=== PATIENT | female | born 1995 | race Hispanic/Latino ===

== ENCOUNTER 2017-10-05 20:54 | Inpatient (IN) | payer SELFPAY ==
[~2017-10-05] VITALS: Ht 154.9 cm; Wt 88.7 kg
[~2017-10-05 20:54] MED LIST: LEVO500T2 PO; METF10004 PO; METR500T PO; SITA50TA PO; TYL3B PO
[2017-10-05 21:18] LABS: APPEARANCE,URINE Clear (CLEAR); BILIRUBIN,URINE Negative (NEGATIVE); COLOR,URINE Yellow (YELLOW); GLUCOSE, URINE (UA) >=1000 mg/dL (NEGATIVE); KETONES,URINE >=80 mg/dL (NEGATIVE); LEUKOCYTE ESTERASE ,URINE Negative (NEGATIVE); NITRATE,URINE Positive (NEGATIVE); OCCULT BLOOD,URINE Negative (NEGATIVE); PROTEIN,URINE POS 2+ (NEGATIVE); UROBILINOGEN,URINE 0.2 mg/dL (0.2-1.0)
[2017-10-05 21:23] LABS: BASOPHILS % (AUTO) 0.5 % (0.0-5.0); HEMATOCRIT 46.9 % (36-48); MEAN CORPUSCULAR HGB CONC 34.7 g/dL (32.0-36.0); MEAN CORPUSCULAR VOLUME 89.2 fL (79-99); MONOCYTES % (AUTO) 6.6 % (3.0-13.0); NEUTROPHILS % (AUTO) 71.9 % (40.0-77.0); PLATELET COUNT (AUTO) 375 K/uL (130-400); RED BLOOD CELL COUNT(AUTO) 5.26 MIL/uL (4.00-5.50); RED CELL DISTRIBUTION WIDTH 12.6 % (11.0-15.5); WHITE BLOOD COUNT (AUTO) 14.2 K/uL (4.8-10.8)
[2017-10-05 21:39] LABS: ALBUMIN 3.4 g/dL (3.5-5.0); BILIRUBIN,TOTAL 0.6 mg/dL (0.2-1.0); CREATININE 0.7 mg/dL (0.5-1.5); POTASSIUM 4.4 mmol/L (3.5-5.1); TOTAL PROTEIN, SERUM 8.5 g/dL (6.0-8.3)
[2017-10-05] MEDS ORDERED: SODIUM CHLORIDE 0.9% 1000ML 1,000 ML IV ONE (22:05)
[2017-10-05 22:06] LABS: RBC,URINE 0-1 /HPF (0-1); YEAST,URINE BUDDING Few /HPF (None Seen)
[2017-10-05] MEDS ORDERED: INSULIN HUMULIN R 100 UNIT/ML 3ML ONE (22:06)
[2017-10-05 22:07] LABS: BACTERIA,URINE Moderate /HPF (None Seen); SQUAMOUS EPITHELIAL CELL,UR Moderate /LPF (0-2)
[2017-10-05] MEDS ORDERED: ONDANSETRON HCL 4 MG/2 ML VIAL ONE (22:25)
[2017-10-05] MEDS ORDERED: HYOSCYAMINE SULFATE 0.125 MG TAB.SUBL SL ONE (22:26)
[2017-10-05] MEDS ORDERED: FAMOTIDINE/PF 20 MG/2 ML VIAL IV ONE (22:27)
[2017-10-05] MEDS ORDERED: MORPHINE SULFATE 2 MG/ML 1ML SYG IV PRN (23:15)
[2017-10-05] MEDS ORDERED: ACETAMINOPHEN 325 MG TAB PO PRN ×2 (23:15)
[2017-10-05] MEDS: METRONIDAZOLE 500MG/100ML BAG 100 ML IV SCH (23:15)
[2017-10-05] MEDS ORDERED: HYDROCODONE/ACETAMINOPHEN 5/325 MG TAB PO PRN (23:15)
[2017-10-05] MEDS ORDERED: DEXTROSE 50%-WATER 50 ML DISP.SYRIN IV PRN (23:15)
[2017-10-05] MEDS ORDERED: LIDOCAINE HCL-MPF 1% 2ML VIAL IVP PRN (23:15)
[2017-10-05] MEDS ORDERED: GLUCAGON 1MG KIT 1 MG ML IM PRN (23:15)
[2017-10-05] MEDS ORDERED: POTASSIUM CHLORIDE 20MEQ/100ML 100 ML IV PRN (23:15)
[2017-10-05] MEDS ORDERED: LACTATED RINGERS 1000ML 1,000 ML IV SCH (23:15)
[2017-10-05] MEDS: LEVOFLOXACIN 500 MG/D5W 100 ML 100 ML IV SCH (23:15)
[2017-10-05] MEDS ORDERED: POTASSIUM CHLORIDE 10% ELIXIR 20 MEQ/15 ML UDCUP PO PRN (23:15)
[2017-10-05] MEDS ORDERED: ONDANSETRON HCL 4 MG/2 ML VIAL IV PRN (23:15)
[2017-10-05] MEDS ORDERED: LEVOFLOXACIN 500 MG/D5W 100 ML 100 ML ONE (23:17)
[2017-10-05] MEDS ORDERED: PHARMACY COMMUNICATION MISC SCH (23:45)
[2017-10-05] MEDS ORDERED: LABETALOL 20 MG/4 ML DISP.SYRIN IV PRN (23:45)
[2017-10-06] MEDS ORDERED: LACTATED RINGERS 1000ML 1,000 ML IV ONE ×2 (00:04→07:59)
[2017-10-06] MEDS ORDERED: METRONIDAZOLE 500MG/100ML BAG 100 ML ONE ×2 (00:31→07:41)
[2017-10-06] MEDS ORDERED: HYDROCODONE/ACETAMINOPHEN 5/325 MG TAB ONE (00:31)
[2017-10-06 06:00] LABS: HEMATOCRIT 38.7 % (36-48); MEAN CORPUSCULAR HEMOGLOBIN 30.8 pg (27.0-33.0); MEAN CORPUSCULAR HGB CONC 34.8 g/dL (32.0-36.0); MEAN CORPUSCULAR VOLUME 88.5 fL (79-99); PLATELET COUNT (AUTO) 300 K/uL (130-400); RED BLOOD CELL COUNT(AUTO) 4.37 MIL/uL (4.00-5.50); RED CELL DISTRIBUTION WIDTH 12.6 % (11.0-15.5); WHITE BLOOD COUNT (AUTO) 11.2 K/uL (4.8-10.8)
[2017-10-06 06:08] LABS: INR 0.96 (0.85-1.15); PARTIAL THROMBOPLASTIN TIME 29.1 SEC (26.3-35.5); PROTHROMBIN TIME 10.1 SEC (9.6-11.6)
[2017-10-06 06:22] LABS: HEMOGLOBIN A1C 11.9 % (4.0-6.0)
[2017-10-06 06:40] LABS: MAGNESIUM 1.4 mg/dL (1.80-2.40)
[2017-10-06] MEDS: METRONIDAZOLE 500MG/100ML BAG 100 ML IV SCH ×3 (07:15→23:01)
[2017-10-06] MEDS: INSULIN HUMULIN R 100 UNIT/ML 3ML SQ SCH ×4 (07:30→20:51)
[2017-10-06] MEDS ORDERED: LISINOPRIL 5 MG TABLET ONE (08:27)
[2017-10-06] MEDS ORDERED: CARVEDILOL 3.125 MG TABLET PO ONE (08:28)
[2017-10-06] MEDS ORDERED: PANTOPRAZOLE SODIUM 40 MG TABLET.DR PO ONE (08:28)
[2017-10-06] MEDS ORDERED: ENOXAPARIN SODIUM 40 MG/0.4 ML SYRINGE SQ ONE (08:28)
[2017-10-06 08:30] LABS: HIGH SENSITIVITY CRP 129.87 mg/L (0.0-3.0)
[2017-10-06] MEDS ORDERED: PANTOPRAZOLE 40 MG/VIAL IVP SCH (09:00)
[2017-10-06] MEDS: CARVEDILOL 3.125 MG TABLET PO SCH ×2 (09:00→20:56)
[2017-10-06] MEDS: LISINOPRIL 10 MG TABLET PO SCH (09:00)
[2017-10-06] MEDS ORDERED: INSULIN DETEMIR 10ML 100 UNIT/ML 10ML SQ SCH (09:00)
[2017-10-06] MEDS: ENOXAPARIN SODIUM 40 MG/0.4 ML SYRINGE SQ SCH (09:00)
[2017-10-06] MEDS: FAMOTIDINE/PF 20 MG/2 ML VIAL IV SCH ×2 (09:00→20:55)
[2017-10-06 16:24] VITALS: BP 118/75
[2017-10-06] MEDS: SODIUM CHLORIDE 0.9% 1000ML 1,000 ML IV SCH (18:33)
[2017-10-06] MEDS ORDERED: MAGNESIUM 2GM PREMIX 50ML 50 ML IV SCH (18:45)
[2017-10-06 19:39] VITALS: BP 115/74
[2017-10-06] MEDS: INSULIN GLARGINE 100 UNITS/ML 10 ML VIAL SQ SCH (20:49)
[2017-10-06] MEDS: LEVOFLOXACIN 500 MG/D5W 100 ML 100 ML IV SCH (23:23)
[2017-10-06 23:55] VITALS: BP 127/73
[2017-10-07] MEDS: SODIUM CHLORIDE 0.9% 1000ML 1,000 ML IV SCH (02:37)
[2017-10-07 04:45] VITALS: BP 98/68
[2017-10-07 04:55] LABS: BASOPHILS % (AUTO) 0.5 % (0.0-5.0); EOSINOPHILS % (AUTO) 3.5 % (0.0-8.0); HEMATOCRIT 36.6 % (36-48); LYMPHOCYTES % (AUTO) 24.3 % (21.0-51.0); MEAN CORPUSCULAR HEMOGLOBIN 31.1 pg (27.0-33.0); MEAN CORPUSCULAR HGB CONC 35.2 g/dL (32.0-36.0); MEAN CORPUSCULAR VOLUME 88.4 fL (79-99); MONOCYTES % (AUTO) 8.4 % (3.0-13.0); NEUTROPHILS % (AUTO) 63.3 % (40.0-77.0); PLATELET COUNT (AUTO) 286 K/uL (130-400); RED BLOOD CELL COUNT(AUTO) 4.14 MIL/uL (4.00-5.50); RED CELL DISTRIBUTION WIDTH 12.4 % (11.0-15.5); WHITE BLOOD COUNT (AUTO) 10.1 K/uL (4.8-10.8)
[2017-10-07 05:13] LABS: CREATININE 0.5 mg/dL (0.5-1.5); MAGNESIUM 1.8 mg/dL (1.80-2.40); POTASSIUM 3.3 mmol/L (3.5-5.1)
[2017-10-07] MEDS: POTASSIUM CHLORIDE 20 MEQ ERTAB PO PRN ×3 (06:31→16:45)
[2017-10-07] MEDS: INSULIN HUMULIN R 100 UNIT/ML 3ML SQ SCH ×3 (06:31→18:00)
[2017-10-07] MEDS: METRONIDAZOLE 500MG/100ML BAG 100 ML IV SCH ×2 (06:31→13:23)
[2017-10-07 08:00] VITALS: BP 123/70
[2017-10-07] MEDS: INSULIN GLARGINE 100 UNITS/ML 10 ML VIAL SQ SCH (08:45)
[2017-10-07] MEDS: ENOXAPARIN SODIUM 40 MG/0.4 ML SYRINGE SQ SCH (08:48)
[2017-10-07] MEDS: METFORMIN HCL 500 MG TAB.SR.24H PO SCH ×2 (08:48→16:44)
[2017-10-07] MEDS: FAMOTIDINE/PF 20 MG/2 ML VIAL IV SCH (08:48)
[2017-10-07] MEDS: LISINOPRIL 10 MG TABLET PO SCH (08:50)
[2017-10-07] MEDS: CARVEDILOL 3.125 MG TABLET PO SCH (08:50)
[2017-10-07] MEDS ORDERED: PAROXETINE HCL 20 MG TABLET PO SCH (09:00)
[2017-10-07 11:51] VITALS: BP 120/65
[2017-10-07] MEDS ORDERED: PARO-66 PO (14:49)
[2017-10-07] MEDS ORDERED: LEVO500T2 PO (14:49)
[2017-10-07] MEDS ORDERED: METF500T3 PO (14:49)
[2017-10-07 15:52] VITALS: BP 95/60
[2017-10-07] MEDS ORDERED: FLU VACC QS2017-18 36MOS UP/PF 60 MCG/0.5 ML ML IM SCH (17:15)
== END 2017-10-07 18:23 | disposition home or self-care (01) | DRG 74 ==
LOC: EDH 20:54 → EDHIP 20:55 → 3DH 10-06 14:19
PROVIDERS: ADMIT Family Medicine; ATTEND Family Medicine
PROC: 3E0234Z Introduction of Serum, Toxoid and Vaccine into Muscle, Percutaneous Approach (ICD-10-PCS; principal; 2017-10-05)
DX: E11.43 Type 2 diabetes mellitus with diabetic autonomic (poly)neuropathy (principal); E87.0 Hyperosmolality and hypernatremia; E11.65 Type 2 diabetes mellitus with hyperglycemia; N12 Tubulo-interstitial nephritis, not specified as acute or chronic; E87.1 Hypo-osmolality and hyponatremia; K31.84 Gastroparesis; E86.0 Dehydration; Z91.11 Patient's noncompliance with dietary regimen; E66.9 Obesity, unspecified; E87.6 Hypokalemia; F32.9 Major depressive disorder, single episode, unspecified; Z68.37 Body mass index [BMI] 37.0-37.9, adult; Z88.8 Allergy status to other drugs, medicaments and biological substances; Z91.14 Patient's other noncompliance with medication regimen; Z23 Encounter for immunization
CPT/HCPCS: 36415; 71045; 74018; 78264; 80048; 80053; 80061; 81001; 81025; 82009; 82150; 82948; 83036; 83690; 83735; 83930; 85025; 85027; 85610; 85730; 86141; 87040; 87088; 87186; 93005; A9541; G0008; J1650; J1815; J1956; J2405; J3475; J3490; J7030; J7120; Q2038

== ENCOUNTER 2019-05-27 02:05 | Emergency (ER) | payer OTHER ==
[~2019-05-27 02:05] MED LIST changes: -METF10004 PO; +METF500T3 PO; -METR500T PO; +PARO-66 PO; -SITA50TA PO; -TYL3B PO
[2019-05-27] MEDS ORDERED: SODIUM CHLORIDE 0.9% 1000ML 1,000 ML IV ONE ×2 (02:24→03:16)
[2019-05-27 02:32] LABS: APPEARANCE,URINE Cloudy (CLEAR); BILIRUBIN,URINE Negative (NEGATIVE); COLOR,URINE Yellow (YELLOW); GLUCOSE, URINE (UA) >=1000 mg/dL (NEGATIVE); KETONES,URINE >=80 mg/dL (NEGATIVE); LEUKOCYTE ESTERASE ,URINE Trace (NEGATIVE); NITRATE,URINE Positive (NEGATIVE); OCCULT BLOOD,URINE Negative (NEGATIVE); PH,URINE 5.5 (5.0-8.0); PROTEIN,URINE POS 1+ mg/dL (NEGATIVE)
[2019-05-27 02:34] LABS: BASOPHILS % (AUTO) 2.1 % (0.0-5.0); EOSINOPHILS % (AUTO) 1.3 % (0.0-8.0); HEMATOCRIT 42.1 % (36-48); LYMPHOCYTES % (AUTO) 11.7 % (21.0-51.0); MEAN CORPUSCULAR HEMOGLOBIN 31.9 pg (27.0-33.0); MEAN CORPUSCULAR HGB CONC 34.6 g/dL (32.0-36.0); MEAN CORPUSCULAR VOLUME 92.4 fL (79-99); MONOCYTES % (AUTO) 4.5 % (3.0-13.0); NEUTROPHILS % (AUTO) 80.4 % (40.0-77.0); PLATELET COUNT (AUTO) 261 K/uL (130-400); RED BLOOD CELL COUNT(AUTO) 4.56 MIL/uL (4.00-5.50); RED CELL DISTRIBUTION WIDTH 12.8 % (11.0-15.5); WHITE BLOOD COUNT (AUTO) 13.8 K/uL (4.8-10.8)
[2019-05-27 02:39] LABS: CREATININE 0.5 mg/dL (0.5-1.5); POTASSIUM 3.7 mmol/L (3.5-5.1)
[2019-05-27 02:40] LABS: AMPHET/METH SCREEN,URINE NEGATIVE (NEGATIVE); BARBITURATE SCREEN, URINE NEGATIVE (NEGATIVE); BENZODIAZEPINES SCREEN,URINE NEGATIVE (NEGATIVE); CANNABINOID SCREEN,URINE NEGATIVE (NEGATIVE); COCAINE SCREEN,URINE NEGATIVE (NEGATIVE); OPIATE SCREEN,URINE NEGATIVE (NEGATIVE); PHENCYCLIDINE SCREEN,URINE NEGATIVE (NEGATIVE)
[2019-05-27 02:40] LABS: RAPID GROUP A STREP NEGATIVE (NEGATIVE)
[2019-05-27 02:49] LABS: BACTERIA,URINE Many /HPF (None Seen); HCG,QUAL RESULT NEGATIVE (NEGATIVE); MUCUS,URINE Few LPF (None Seen); RBC,URINE 0-1 /HPF (0-1); SQUAMOUS EPITHELIAL CELL,UR Rare /HPF (0-2)
[2019-05-27] MEDS ORDERED: LEVOFLOXACIN 500 MG/D5W 100 ML 100 ML ONE (03:15)
[2019-05-27] MEDS ORDERED: ACETAMINOPHEN EXTRA STRENGTH 500 MG TABLET ONE (03:15)
[2019-05-27] MEDS ORDERED: INSULIN HUMULIN R 100 UNIT/ML 3ML ONE (03:16)
== END 2019-05-27 04:45 | disposition home or self-care (01) ==
LOC: EDH 02:05
DX: N10 Acute pyelonephritis (principal); E13.65 Other specified diabetes mellitus with hyperglycemia; F41.9 Anxiety disorder, unspecified; F32.9 Major depressive disorder, single episode, unspecified; Z88.8 Allergy status to other drugs, medicaments and biological substances; Z90.49 Acquired absence of other specified parts of digestive tract
CPT/HCPCS: 36415; 80048; 80305; 81001; 81025; 83605; 85025; 87040 ×2; 87077; 87088; 87186; 87804 ×2; 87880; 96361; 96365; 96375; 99284; J1815; J1956; J7030 ×2

== ENCOUNTER 2020-02-20 20:10 | Emergency (ER) | payer OTHER ==
[2020-02-20] MEDS ORDERED: ONDANSETRON HCL 4 MG/2 ML VIAL ONE (21:51)
[2020-02-20] MEDS ORDERED: KETOROLAC TROMETHAMINE 30MG/ML ONE (21:51)
[2020-02-20] MEDS ORDERED: MORPHINE SULFATE 4 MG/1ML SYG ONE (21:52)
[2020-02-20] MEDS ORDERED: INSULIN HUMULIN R 100 UNIT/ML 3ML ONE (21:53)
[2020-02-20] MEDS ORDERED: SODIUM CHLORIDE 0.9% 500ML 1,000 ML IV ONE (22:23)
== END 2020-02-21 00:55 | disposition home or self-care (01) ==
LOC: EDH 20:10
DX: N30.00 Acute cystitis without hematuria (principal); B00.9 Herpesviral infection, unspecified; E11.65 Type 2 diabetes mellitus with hyperglycemia; F41.9 Anxiety disorder, unspecified; F32.9 Major depressive disorder, single episode, unspecified; Z88.8 Allergy status to other drugs, medicaments and biological substances; Z90.49 Acquired absence of other specified parts of digestive tract
CPT/HCPCS: 36415; 36600; 80053; 81001; 81025; 82010; 82803; 82948; 83605; 85025; 87040 ×2; 87077; 87088; 87186; 96361; 96374; 96375; 99284; J1815; J1885; J2270; J2405; J7040

== ENCOUNTER 2020-10-29 19:53 | Emergency (ER) | payer OTHER ==
[2020-10-29] MEDS ORDERED: SODIUM CHLORIDE 0.9% 1000ML 1,000 ML IV ONE (21:08)
[2020-10-29 21:14] LABS: BASOPHILS % (AUTO) 0.3 % (0.0-5.0); HEMATOCRIT 44.4 % (36-48); LYMPHOCYTES % (AUTO) 41.9 % (21.0-51.0); MEAN CORPUSCULAR HGB CONC 35.4 g/dL (32.0-36.0); MEAN CORPUSCULAR VOLUME 87.6 fL (79-99); MONOCYTES % (AUTO) 6.1 % (3.0-13.0); NEUTROPHILS % (AUTO) 49.5 % (40.0-77.0); PLATELET COUNT (AUTO) 355 K/uL (130-400); RED BLOOD CELL COUNT(AUTO) 5.07 MIL/uL (4.00-5.50); RED CELL DISTRIBUTION WIDTH 11.7 % (11.0-15.5); WHITE BLOOD COUNT (AUTO) 8.8 K/uL (4.8-10.8)
[2020-10-29 21:28] LABS: APPEARANCE,URINE Clear (CLEAR); BILIRUBIN,URINE Negative (NEGATIVE); COLOR,URINE Yellow (YELLOW); GLUCOSE, URINE (UA) >=1000 mg/dL (NEGATIVE); KETONES,URINE Trace mg/dL (NEGATIVE); LEUKOCYTE ESTERASE ,URINE Trace (NEGATIVE); NITRATE,URINE Positive (NEGATIVE); OCCULT BLOOD,URINE Moderate (NEGATIVE); PH,URINE 5.5 (5.0-8.0); PROTEIN,URINE Trace mg/dL (NEGATIVE); UROBILINOGEN,URINE 0.2 mg/dL (0.2-1.0)
[2020-10-29 21:32] LABS: CREATININE 0.6 mg/dL (0.5-1.5); POTASSIUM 3.6 mmol/L (3.5-5.1)
[2020-10-29 21:36] LABS: BACTERIA,URINE Moderate /HPF (None Seen); MUCUS,URINE Few LPF (None Seen); SQUAMOUS EPITHELIAL CELL,UR Few /HPF (0-2); YEAST,URINE BUDDING Few /HPF (None Seen)
[2020-10-29 21:37] LABS: ALBUMIN 3.6 g/dL (3.5-5.0); BILIRUBIN,TOTAL 0.3 mg/dL (0.2-1.0); TOTAL PROTEIN, SERUM 8.1 g/dL (6.0-8.3)
[2020-10-29 21:49] LABS: ABG BASE EXCESS -4.6 mmol/L (-2.0-3.0); ABG HCO3 19.8 mmol/L (21.0-28.0); ABG PCO2 35 mmHg (32-45)
[2020-10-29 21:52] LABS: ABG BASE EXCESS -2.7 mmol/L (-2.0-3.0); ABG HCO3 22.4 mmol/L (21.0-28.0); ABG OXYGEN SATURATION 96.6 % (95.0-99.0); ABG PCO2 40 mmHg (32-45)
[2020-10-29] MEDS ORDERED: LEVOFLOXACIN 500 MG TABLET ONE ×2 (21:52→22:23)
[2020-10-29] MEDS ORDERED: LORAZEPAM 0.5 MG TABLET ONE (22:23)
== END 2020-10-29 23:21 | disposition home or self-care (01) ==
LOC: EDH 19:53
DX: F41.1 Generalized anxiety disorder (principal); E10.65 Type 1 diabetes mellitus with hyperglycemia; N39.0 Urinary tract infection, site not specified; Z20.822 Contact with and (suspected) exposure to COVID-19; F32.9 Major depressive disorder, single episode, unspecified; Z88.8 Allergy status to other drugs, medicaments and biological substances; Z90.49 Acquired absence of other specified parts of digestive tract
CPT/HCPCS: 36415; 36600; 80053; 81001; 82010; 82803; 85025; 87077; 87088; 87186; 87426; 96360; 99283; J7030; U0003

== ENCOUNTER 2022-04-12 03:42 | Emergency (ER) | payer OTHER ==
[~2022-04-12] VITALS: Ht 154.9 cm; Wt 82.1 kg
[~2022-04-12 03:42] MED LIST changes: +GLIM4TAB36 PO; +INSLAN SQ; -LEVO500T2 PO; +METF-444 PO
[2022-04-12] MEDS ORDERED: DIPH50CA37 PO (03:58)
[2022-04-12] MEDS ORDERED: DIPHENHYDRAMINE HCL 25 MG CAPSULE PO ONE (04:00)
[2022-04-12] MEDS ORDERED: DEXAMETHASONE SOD PHOSPHATE 4 MG/ML 1ML VIAL IM ONE (04:00)
[2022-04-12] MEDS ORDERED: LORATADINE 10 MG TABLET PO SCH (04:00)
[2022-04-12] MEDS ORDERED: DEXAMETHASONE SOD PHOSPHATE 10MG/ML 1ML VIAL ONE (04:01)
[2022-04-12] MEDS ORDERED: LORATADINE 10 MG TABLET ONE (04:02)
[2022-04-12] MEDS ORDERED: DIPHENHYDRAMINE HCL 25 MG CAPSULE ONE (04:02)
[2022-04-12 04:47] VITALS: BP 131/63
== END 2022-04-12 04:53 | disposition home or self-care (01) ==
LOC: EDH 03:42
DX: T78.49XA Other allergy, initial encounter (principal); E11.9 Type 2 diabetes mellitus without complications; Z79.52 Long term (current) use of systemic steroids; Z79.84 Long term (current) use of oral hypoglycemic drugs; Z79.899 Other long term (current) drug therapy; Z88.0 Allergy status to penicillin; X58.XXXA Exposure to other specified factors, initial encounter
CPT/HCPCS: 99283; 96372; Q0163; J1100

== ENCOUNTER 2022-12-04 14:12 | Emergency (ER) | payer OTHER ==
[~2022-12-04] VITALS: Ht 154.9 cm; Wt 83.5 kg
[~2022-12-04 14:12] MED LIST changes: +DIPH50CA37 PO; +PARO-149 PO; -PARO-66 PO
[2022-12-04] MEDS ORDERED: 0.9%NACL 1000ML 2,000 ML IV ONE (15:00)
[2022-12-04] MEDS ORDERED: 0.9%NACL 1000ML 1,000 ML IV ONE (15:00)
[2022-12-04 15:03] LABS: BASOPHILS % (AUTO) 0.4 % (0.0-5.0); EOSINOPHILS % (AUTO) 0.1 % (0.0-8.0); HEMATOCRIT 39.3 % (36-48); LYMPHOCYTES % (AUTO) 21.1 % (21.0-51.0); MEAN CORPUSCULAR HEMOGLOBIN 30.5 pg (27.0-33.0); MEAN CORPUSCULAR HGB CONC 35.4 g/dL (32.0-36.0); MEAN CORPUSCULAR VOLUME 86.4 fL (79-99); MONOCYTES % (AUTO) 8.7 % (3.0-13.0); NEUTROPHILS % (AUTO) 69.3 % (40.0-77.0); PLATELET COUNT (AUTO) 274 K/uL (130-400); RED BLOOD CELL COUNT(AUTO) 4.55 MIL/uL (4.00-5.50); RED CELL DISTRIBUTION WIDTH 11.7 % (11.0-15.5); WHITE BLOOD COUNT (AUTO) 6.8 K/uL (4.8-10.8)
[2022-12-04 15:10] LABS: CREATININE 0.6 mg/dL (0.5-1.5); POTASSIUM 3.8 mmol/L (3.5-5.1)
[2022-12-04 15:15] LABS: ALBUMIN 3.2 g/dL (3.5-5.0); TOTAL PROTEIN, SERUM 7.5 g/dL (6.0-8.3)
[2022-12-04] MEDS ORDERED: ACETAMINOPHEN 500 MG TABLET PO ONE (15:30)
[2022-12-04] MEDS ORDERED: OSEL75 PO (15:52)
[2022-12-04 15:54] LABS: APPEARANCE,URINE CLOUDY (CLEAR); BILIRUBIN,URINE NEGATIVE (NEGATIVE); COLOR,URINE LIGHT-YELLOW (YELLOW); GLUCOSE, URINE (UA) >=1000 mg/dL (NEGATIVE); HCG,QUALITATIVE URINE NEGATIVE (NEGATIVE); KETONES,URINE 150 mg/dL (NEGATIVE); LEUKOCYTE ESTERASE ,URINE 500 Leu/uL (NEGATIVE); NITRATE,URINE 1+ (NEGATIVE); OCCULT BLOOD,URINE NEGATIVE (NEGATIVE); PH,URINE 5.5 (5.0-8.0); PROTEIN,URINE 10 mg/dL (NEGATIVE); UROBILINOGEN,URINE 0.2 mg/dL (0.2-1.0)
[2022-12-04 15:57] LABS: BACTERIA,URINE MOD /HPF (None Seen); SQUAMOUS EPITHELIAL CELL,UR RARE /HPF (0-2); WBC,URINE 51-100 /HPF (0-1); YEAST,URINE BUDDING FEW /HPF (None Seen)
[2022-12-04] MEDS ORDERED: OSELTAMIVIR PHOSPHATE 75 MG CAP PO ONE (16:00)
[2022-12-04] MEDS ORDERED: SULFAMETHOX-TMP DS 800/160 TAB PO SCH (16:00)
[2022-12-04] MEDS ORDERED: SULF1TAB42 PO (16:03)
[2022-12-04 16:15] VITALS: BP 114/69
== END 2022-12-04 16:37 | disposition home or self-care (01) ==
LOC: EDH 14:12
DX: J10.1 Influenza due to other identified influenza virus with other respiratory manifestations (principal); N39.0 Urinary tract infection, site not specified; E11.9 Type 2 diabetes mellitus without complications; Z20.822 Contact with and (suspected) exposure to COVID-19; Z79.899 Other long term (current) drug therapy; Z79.84 Long term (current) use of oral hypoglycemic drugs; Z98.890 Other specified postprocedural states; Z88.0 Allergy status to penicillin; Z88.8 Allergy status to other drugs, medicaments and biological substances; Z90.49 Acquired absence of other specified parts of digestive tract
CPT/HCPCS: 99285; 96360; 71045; 87635; 84484; 80053; 84703; 85025; 87040 ×2; 87088; 87804 ×2; 82948; 83605; 81001; 81025; 36415; 93005; C9803; J7030; 87077; 87186

== ENCOUNTER 2022-12-04 18:04 | Inpatient (IN) | payer OTHER ==
[~2022-12-04] VITALS: Ht 154.9 cm; Wt 83.5 kg
[~2022-12-04 18:04] MED LIST changes: +OSEL75 PO; +SULF1TAB42 PO
[2022-12-04] MEDS ORDERED: 0.9%NACL 1000ML 1,000 ML IV ONE (18:30)
[2022-12-04] MEDS ORDERED: IOHEXOL-350 75 ML VIAL IV ONE (19:38)
[2022-12-04 20:27] LABS: AMPHET/METH SCREEN,URINE NEGATIVE (NEGATIVE); BARBITURATE SCREEN, URINE NEGATIVE (NEGATIVE); BENZODIAZEPINES SCREEN,URINE NEGATIVE (NEGATIVE); CANNABINOID SCREEN,URINE NEGATIVE (NEGATIVE); COCAINE SCREEN,URINE NEGATIVE (NEGATIVE); OPIATE SCREEN,URINE NEGATIVE (NEGATIVE); PHENCYCLIDINE SCREEN,URINE NEGATIVE (NEGATIVE)
[2022-12-04 20:36] LABS: BASOPHILS % (AUTO) 0.1 % (0.0-5.0); EOSINOPHILS % (AUTO) 0.1 % (0.0-8.0); HEMATOCRIT 39.6 % (36-48); LYMPHOCYTES % (AUTO) 13.3 % (21.0-51.0); MEAN CORPUSCULAR HEMOGLOBIN 30.1 pg (27.0-33.0); MEAN CORPUSCULAR HGB CONC 34.8 g/dL (32.0-36.0); MEAN CORPUSCULAR VOLUME 86.5 fL (79-99); PLATELET COUNT (AUTO) 269 K/uL (130-400); RED BLOOD CELL COUNT(AUTO) 4.58 MIL/uL (4.00-5.50); RED CELL DISTRIBUTION WIDTH 11.9 % (11.0-15.5)
[2022-12-04 20:47] LABS: CREATININE 0.5 mg/dL (0.5-1.5); POTASSIUM 3.4 mmol/L (3.5-5.1)
[2022-12-04 20:53] LABS: ALBUMIN 2.3 g/dL (3.5-5.0); TOTAL PROTEIN, SERUM 5.6 g/dL (6.0-8.3)
[2022-12-04 22:08] LABS: ABG BASE EXCESS -9.4 mmol/L (-2.0-3.0); ABG HCO3 14.5 mmol/L (21.0-28.0); ABG OXYGEN SATURATION 96.2 % (95.0-99.0); ABG PCO2 27 mmHg (32-45)
[2022-12-04] MEDS ORDERED: MORPHINE 4 MG SYG IV PRN (22:30)
[2022-12-04] MEDS ORDERED: DiphenhydrAMINE HCL 50 MG/ML VIAL IV PRN (22:30)
[2022-12-04] MEDS ORDERED: ONDANSETRON 4MG INJ IV PRN (22:30)
[2022-12-04] MEDS ORDERED: POTASSIUM CHLORIDE 20MEQ/100ML 100 ML IV PRN (22:30)
[2022-12-04] MEDS ORDERED: LACTATED RINGERS 1000ML 1,000 ML IV SCH (22:30)
[2022-12-04] MEDS ORDERED: MORPHINE 2 MG SYG IV PRN (22:30)
[2022-12-04] MEDS ORDERED: SOLU-MEDROL 125MG VIAL IVP ONE (22:30)
[2022-12-04] MEDS ORDERED: LIDOCAINE HCL-MPF 1% 2ML VIAL IV PRN (22:30)
[2022-12-04] MEDS ORDERED: EPINEPHRINE PF 1MG (1:1,000) 1 MG/ML AMP SQ ONE (22:30)
[2022-12-04] MEDS ORDERED: KCL 20 MEQ ERTAB PO PRN (22:30)
[2022-12-04] MEDS ORDERED: DiphenhydrAMINE HCL 50 MG/ML VIAL IV ONE (22:30)
[2022-12-04] MEDS ORDERED: ACETAMINOPHEN 325 MG TAB PO PRN (22:30)
[2022-12-04] MEDS ORDERED: SOLU-MEDROL 40MG VIAL IVP SCH (22:30)
[2022-12-04 22:58] LABS: APPEARANCE,URINE CLEAR (CLEAR); BILIRUBIN,URINE NEGATIVE (NEGATIVE); COLOR,URINE LIGHT-YELLOW (YELLOW); GLUCOSE, URINE (UA) >=1000 mg/dL (NEGATIVE); KETONES,URINE 150 mg/dL (NEGATIVE); LEUKOCYTE ESTERASE ,URINE 250 Leu/uL (NEGATIVE); NITRATE,URINE NEGATIVE (NEGATIVE); PH,URINE 5.5 (5.0-8.0); PROTEIN,URINE 20 mg/dL (NEGATIVE); UROBILINOGEN,URINE 0.2 mg/dL (0.2-1.0)
[2022-12-04 23:07] LABS: WBC,URINE 51-100 /HPF (0-1)
[2022-12-04 23:08] LABS: BACTERIA,URINE Few /HPF (None Seen); SQUAMOUS EPITHELIAL CELL,UR Few /HPF (0-2); YEAST,URINE BUDDING Few /HPF (None Seen)
[2022-12-04 23:09] LABS: MUCUS,URINE Rare LPF (None Seen)
[2022-12-04] MEDS ORDERED: 0.9%NACL 1000ML 1,000 ML IV SCH (23:30)
[2022-12-04] MEDS ORDERED: MAGNESIUM 2GM PREMIX 50ML 50 ML IV SCH (23:30)
[2022-12-04] MEDS ORDERED: D5W-1/2 NS/20MEQ KCL 1,000 ML IV SCH (23:30)
[2022-12-04] MEDS ORDERED: INSULIN REGULAR, HUMAN 3ML 100 UNIT in 0.9%NACL 100ML 100 ML IV SCH ×2 (23:30)
[2022-12-04] MEDS ORDERED: POTASSIUM CHLORIDE 10MEQ/100ML 100 ML IV PRN (23:30)
[2022-12-04 23:44] LABS: CREATININE 0.5 mg/dL (0.5-1.5); POTASSIUM 3.8 mmol/L (3.5-5.1)
[2022-12-05] VITALS (16 sets, daily range): BP systolic 107–132; BP diastolic 53–83
[2022-12-05] MEDS ORDERED: POTASSIUM CHLORIDE 10% ELIXIR 20 MEQ/15 ML UDCUP PO ONE (00:30)
[2022-12-05] MEDS: LEVOFLOXACIN 500 MG/D5W 100 ML 100 ML IV SCH ×2 (01:01→21:31)
[2022-12-05] MEDS ORDERED: LACTATED RINGERS 1000ML IV SCH (03:00)
[2022-12-05 04:27] LABS: BASOPHILS % (AUTO) 0.2 % (0.0-5.0); HEMATOCRIT 35.3 % (36-48); LYMPHOCYTES % (AUTO) 11.2 % (21.0-51.0); MEAN CORPUSCULAR HEMOGLOBIN 30.8 pg (27.0-33.0); MEAN CORPUSCULAR HGB CONC 34.8 g/dL (32.0-36.0); MEAN CORPUSCULAR VOLUME 88.5 fL (79-99); MONOCYTES % (AUTO) 1.7 % (3.0-13.0); NEUTROPHILS % (AUTO) 86.4 % (40.0-77.0); PLATELET COUNT (AUTO) 258 K/uL (130-400); RED BLOOD CELL COUNT(AUTO) 3.99 MIL/uL (4.00-5.50); RED CELL DISTRIBUTION WIDTH 11.9 % (11.0-15.5); WHITE BLOOD COUNT (AUTO) 6.1 K/uL (4.8-10.8)
[2022-12-05 04:38] LABS: HEMOGLOBIN A1C 5.6 % (4.0-6.0)
[2022-12-05 04:52] LABS: ABG BASE EXCESS -6.2 mmol/L (-2.0-3.0); ABG HCO3 17.5 mmol/L (21.0-28.0); ABG OXYGEN SATURATION 95.4 % (95.0-99.0); ABG PCO2 30 mmHg (32-45)
[2022-12-05 04:57] LABS: CARBON DIOXIDE 17 mmol/L (21-32); CHLORIDE 103 mmol/L (101-111); CHOLESTEROL 126 mg/dL (<200); CREATININE 0.5 mg/dL (0.5-1.5); GLOMERULAR FILTR. RATE CALC 131 mL/min (>90); GLUCOSE,RANDOM 264 mg/dL (70-105); HDL CHOLESTEROL 26 mg/dL (35-85); LDL DIRECT 69 mg/dL (0-99); POTASSIUM 3.8 mmol/L (3.5-5.1); SODIUM SERUM 128 mmol/L (136-145); TRIGLYCERIDES 207 mg/dL (30-200); UREA NITROGEN, BLOOD 6 mg/dL (7-18)
[2022-12-05 05:17] LABS: LIPASE < 50 U/L (114-286)
[2022-12-05] MEDS ORDERED: INSULIN GLARGINE 100 UNITS/ML 10 ML VIAL SQ SCH ×2 (07:00→21:00)
[2022-12-05] MEDS ORDERED: INSULIN HUMULIN R 100 UNIT/ML 3ML SQ SCH (07:30)
[2022-12-05 08:17] LABS: CREATININE 0.5 mg/dL (0.5-1.5); POTASSIUM 3.7 mmol/L (3.5-5.1)
[2022-12-05] MEDS: FAMOTIDINE 20MG VIAL IV SCH ×2 (09:06→20:16)
[2022-12-05] MEDS: ENOXAPARIN SODIUM 40 MG/0.4 ML SYRINGE SQ SCH (09:06)
[2022-12-05] MEDS: OSELTAMIVIR PHOSPHATE 75 MG CAP PO SCH ×2 (09:06→20:16)
[2022-12-05] MEDS: 0.9%NACL 1000ML 1,000 ML IV SCH ×2 (11:00→20:23)
[2022-12-05] MEDS: INSULIN HUMULIN R 100 UNIT/ML 3ML SQ SCH ×3 (11:34→23:58)
[2022-12-05] MEDS: ACETAMINOPHEN 325 MG TAB PO PRN (20:23)
[2022-12-06] MEDS: 0.9%NACL 1000ML 1,000 ML IV SCH ×2 (03:45→17:40)
[2022-12-06 04:00] VITALS: BP 128/83
[2022-12-06] MEDS: ACETAMINOPHEN 325 MG TAB PO PRN ×4 (04:45→20:33)
[2022-12-06 05:05] LABS: BASOPHILS % (AUTO) 0.2 % (0.0-5.0); EOSINOPHILS % (AUTO) 0.4 % (0.0-8.0); HEMATOCRIT 34.1 % (36-48); LYMPHOCYTES % (AUTO) 25.4 % (21.0-51.0); MEAN CORPUSCULAR HEMOGLOBIN 30.6 pg (27.0-33.0); MEAN CORPUSCULAR HGB CONC 34.3 g/dL (32.0-36.0); MEAN CORPUSCULAR VOLUME 89.3 fL (79-99); MONOCYTES % (AUTO) 11.7 % (3.0-13.0); NEUTROPHILS % (AUTO) 61.6 % (40.0-77.0); PLATELET COUNT (AUTO) 238 K/uL (130-400); RED BLOOD CELL COUNT(AUTO) 3.82 MIL/uL (4.00-5.50); RED CELL DISTRIBUTION WIDTH 12.2 % (11.0-15.5); WHITE BLOOD COUNT (AUTO) 4.5 K/uL (4.8-10.8)
[2022-12-06 05:26] LABS: CREATININE 0.5 mg/dL (0.5-1.5); MAGNESIUM 1.8 mg/dL (1.80-2.40); POTASSIUM 3.5 mmol/L (3.5-5.1)
[2022-12-06] MEDS: MAGNESIUM 2GM PREMIX 50ML 50 ML IV PRN (05:42)
[2022-12-06] MEDS: POTASSIUM CHLORIDE 10% ELIXIR 20 MEQ/15 ML UDCUP PO PRN (05:43)
[2022-12-06] MEDS: INSULIN HUMULIN R 100 UNIT/ML 3ML SQ SCH ×5 (06:05→22:12)
[2022-12-06 08:00] VITALS: BP 111/66
[2022-12-06] MEDS: OSELTAMIVIR PHOSPHATE 75 MG CAP PO SCH ×2 (08:45→20:22)
[2022-12-06] MEDS: ENOXAPARIN SODIUM 40 MG/0.4 ML SYRINGE SQ SCH (08:47)
[2022-12-06] MEDS: FAMOTIDINE 20MG VIAL IV SCH ×2 (08:47→20:22)
[2022-12-06] MEDS ORDERED: INSULIN GLARGINE 100 UNITS/ML 10 ML VIAL SQ SCH (09:00)
[2022-12-06 11:50] VITALS: BP 131/78
[2022-12-06 16:00] VITALS: BP 133/91
[2022-12-06 20:41] VITALS: BP 152/90
[2022-12-06] MEDS: LEVOFLOXACIN 500 MG/D5W 100 ML 100 ML IV SCH (21:21)
[2022-12-06 23:53] VITALS: BP 130/85
[2022-12-07] MEDS: 0.9%NACL 1000ML 1,000 ML IV SCH ×2 (02:27→13:00)
[2022-12-07 04:07] VITALS: BP 123/77
[2022-12-07 04:41] LABS: MAGNESIUM 1.8 mg/dL (1.80-2.40); POTASSIUM 3.4 mmol/L (3.5-5.1)
[2022-12-07] MEDS: MAGNESIUM 2GM PREMIX 50ML 50 ML IV PRN (04:44)
[2022-12-07] MEDS: POTASSIUM CHLORIDE 10% ELIXIR 20 MEQ/15 ML UDCUP PO PRN ×2 (04:48→06:36)
[2022-12-07] MEDS: ACETAMINOPHEN 325 MG TAB PO PRN (05:02)
[2022-12-07] MEDS: INSULIN HUMULIN R 100 UNIT/ML 3ML SQ SCH ×6 (06:40→17:21)
[2022-12-07] MEDS ORDERED: INSULIN HUMULIN R 100 UNIT/ML 3ML SQ SCH (07:30)
[2022-12-07 07:31] VITALS: BP 124/77
[2022-12-07] MEDS: FAMOTIDINE 20MG VIAL IV SCH (07:37)
[2022-12-07] MEDS: OSELTAMIVIR PHOSPHATE 75 MG CAP PO SCH (07:38)
[2022-12-07] MEDS: ENOXAPARIN SODIUM 40 MG/0.4 ML SYRINGE SQ SCH (07:38)
[2022-12-07 07:42] LABS: MEAN CORPUSCULAR HEMOGLOBIN 30.4 pg (27.0-33.0); MEAN CORPUSCULAR VOLUME 91.9 fL (79-99); RED BLOOD CELL COUNT(AUTO) 3.59 MIL/uL (4.00-5.50); RED CELL DISTRIBUTION WIDTH 12.2 % (11.0-15.5); WHITE BLOOD COUNT (AUTO) 4.2 K/uL (4.8-10.8)
[2022-12-07 07:54] LABS: CREATININE 0.5 mg/dL (0.5-1.5); POTASSIUM 3.4 mmol/L (3.5-5.1)
[2022-12-07] MEDS ORDERED: INSULIN GLARGINE 100 UNITS/ML 10 ML VIAL SQ SCH ×2 (09:00)
[2022-12-07] MEDS ORDERED: INSU100I35 SQ (10:49)
[2022-12-07 11:00] VITALS: BP 131/72
[2022-12-07 16:00] VITALS: BP 128/71
[2022-12-07] MEDS ORDERED: NITROFURANTOIN MONOHYD/M-CRYST 100 MG CAPSULE PO SCH (21:00)
== END 2022-12-07 19:12 | disposition home or self-care (01) | DRG 871 ==
LOC: EDH 18:04 → EDHIP 18:05 → 2CH 12-05 01:44 → 3BH 12-05 15:37
PROVIDERS: ADMIT Internal Medicine; ATTEND Internal Medicine
DX: A41.9 Sepsis, unspecified organism (principal); E10.10 Type 1 diabetes mellitus with ketoacidosis without coma; J96.01 Acute respiratory failure with hypoxia; N39.0 Urinary tract infection, site not specified; E87.1 Hypo-osmolality and hyponatremia; J10.1 Influenza due to other identified influenza virus with other respiratory manifestations; E87.6 Hypokalemia; E83.51 Hypocalcemia; I10 Essential (primary) hypertension; B96.20 Unspecified Escherichia coli [E. coli] as the cause of diseases classified elsewhere; Z79.4 Long term (current) use of insulin; Z82.49 Family history of ischemic heart disease and other diseases of the circulatory system; Z83.3 Family history of diabetes mellitus; Z88.1 Allergy status to other antibiotic agents; Z91.199 Patient's noncompliance with other medical treatment and regimen due to unspecified reason
CPT/HCPCS: 36415; 36600; 74177; 80048; 80053; 80061; 80305; 81001; 82010; 82803; 82948; 83036; 83605; 83690; 83735; 84100; 84132; 84484; 85025; 85027; 87040; 87077; 87088; 87186; 93005; G0378; J1650; J1815; J1956; J2920; J3475; J3480; J3490; J7030; Q9967

== ENCOUNTER 2023-10-17 08:37 | Emergency (ER) | payer OTHER ==
[~2023-10-17] VITALS: Ht 154.9 cm; Wt 65.8 kg
[~2023-10-17 08:37] MED LIST changes: -DIPH50CA37 PO; -GLIM4TAB36 PO; -INSLAN SQ; +INSU100I35 SQ; -METF-444 PO; -METF500T3 PO; -OSEL75 PO; -PARO-149 PO; -SULF1TAB42 PO
[2023-10-17] MEDS: HYDRALAZINE 25MG TABLET PO SCH (09:14)
[2023-10-17 09:30] LABS: BASOPHILS # (AUTO) 0.05 K/uL (0.00-0.20); BASOPHILS % (AUTO) 0.6 % (0.0-5.0); EOSINOPHILS # (AUTO) 0.33 K/uL (0.00-0.70); EOSINOPHILS % (AUTO) 3.7 % (0.0-8.0); HEMATOCRIT 41.5 % (36-48); IMMATURE GRANULOCYTE ABSOLUTE 0.03 K/uL (0-1); LYMPHOCYTES # (AUTO) 2.3 K/uL (1.0-4.8); LYMPHOCYTES % (AUTO) 25.3 % (21.0-51.0); MEAN CORPUSCULAR HEMOGLOBIN 30.9 pg (27.0-33.0); MEAN CORPUSCULAR HGB CONC 36.1 g/dL (32.0-36.0); MEAN CORPUSCULAR VOLUME 85.4 fL (79-99); MONOCYTES # (AUTO) 0.5 K/uL (0.1-1.0); MONOCYTES % (AUTO) 5.2 % (3.0-13.0); NEUTROPHILS # (AUTO) 5.8 K/uL (1.8-7.7); NEUTROPHILS % (AUTO) 64.9 % (40.0-77.0); PLATELET COUNT (AUTO) 341 K/uL (130-400); RED BLOOD CELL COUNT(AUTO) 4.86 MIL/uL (4.00-5.50); RED CELL DISTRIBUTION WIDTH 11.9 % (11.0-15.5)
[2023-10-17 09:34] LABS: AMPHET/METH SCREEN,URINE NEGATIVE (NEGATIVE); BARBITURATE SCREEN, URINE NEGATIVE (NEGATIVE); BENZODIAZEPINES SCREEN,URINE NEGATIVE (NEGATIVE); CANNABINOID SCREEN,URINE NEGATIVE (NEGATIVE); COCAINE SCREEN,URINE NEGATIVE (NEGATIVE); OPIATE SCREEN,URINE NEGATIVE (NEGATIVE); PHENCYCLIDINE SCREEN,URINE NEGATIVE (NEGATIVE)
[2023-10-17 09:43] LABS: ALANINE AMINOTRANSFERASE 32 U/L (12-78); ALBUMIN 3.5 g/dL (3.5-5.0); ALCOHOL, BLOOD < 3 mg/dL (0-10); ASPARTATE AMINOTRANSFERASE 15 U/L (10-37); BILIRUBIN,TOTAL 0.3 mg/dL (0.2-1.0); CARBON DIOXIDE 26 mmol/L (21-32); CHLORIDE 97 mmol/L (101-111); CREATININE 0.6 mg/dL (0.5-1.5); GLOMERULAR FILTR. RATE CALC 125 mL/min (>90); SODIUM SERUM 134 mmol/L (136-145); TOTAL PROTEIN, SERUM 7.7 g/dL (6.0-8.3); UREA NITROGEN, BLOOD 12 mg/dL (7-18)
[2023-10-17 09:45] LABS: ACETAMINOPHEN < 1 mcg/mL (10-30); SALICYLATE < 2.8 mg/dL (2.8-20.0)
[2023-10-17 09:46] LABS: GLUCOSE,RANDOM 423 mg/dL (70-105)
[2023-10-17] MEDS: 0.9%NACL 1000ML 1,000 ML IV ONE (10:08)
[2023-10-17] MEDS: INSULIN HUMULIN R 100 UNIT/ML 3ML IV ONE (10:09)
[2023-10-17 10:18] LABS: ABG BASE EXCESS -3.1 mmol/L (-2.0-3.0); ABG OXYGEN SATURATION 86.8 % (95.0-99.0); ABG PCO2 39 mmHg (32-45); ABG PH 7.364 (7.350-7.450); PO2, ARTERIAL BG 53.5 mmHg (83.0-108.0); VENT MODE, BG RA (ROOM AIR)
[2023-10-17 10:55] VITALS: BP 136/89; PULSE 127; RESP 20; O2SAT 98
== END 2023-10-17 11:00 | disposition left against medical advice (07) ==
LOC: EDH 08:37
DX: R45.851 Suicidal ideations (principal); F32.A Depression, unspecified; E10.9 Type 1 diabetes mellitus without complications; Z88.2 Allergy status to sulfonamides; Z88.8 Allergy status to other drugs, medicaments and biological substances; Z98.890 Other specified postprocedural states; Z79.899 Other long term (current) drug therapy
CPT/HCPCS: 99283; 96374; 96361; 80053; 82803; 80305; 84703; 85025; 82010; 36415; 36600; J1815; J7030; G0481